=== PATIENT | female | born 1975 | race African-American/Black ===

== ENCOUNTER 2016-09-01 11:22 | Emergency (ER) | payer MEDICAID ==
[~2016-09-01] VITALS: Ht 162.6 cm; Wt 63.5 kg
[2016-09-01] MEDS ORDERED: LORazepam Inj 2mg/ml 1ml ONE (11:35)
[2016-09-01] MEDS ORDERED: LORazepam Inj 2mg/ml 1ml IM ONE (11:45)
[2016-09-01 12:59] VITALS: BP 124/85
--- NOTE | 2016-09-02 01:05 | Emergency Room Report ---
History of Present Illness General Chief Complaint: General Complaint Source: Patient Present Illness HPI Patient with severe emotional distress after loosing her son in our ICU. Will not state much except that she is distraught. No vomiting. No prior psychiatric history. SOB, some chest pain and headache. Allergies: Coded Allergies: No Known Allergies (Unverified , 09/01/16) Patient History Limited by: medical condition Past Medical History: see triage record Pertinent Family History: other - sickle cell anemia Social History: Reports: smoking Social History Narrative with family Last Menstrual Period: 2 weeks ago Nursing Documentation-[facility] Past Medical History: No Stated History Review of Systems All Other Systems: limited Physical Exam Vital Signs Date Time Temp Pulse Resp B/P Pulse Ox O2 Delivery O2 Flow Rate FiO2 09/01/16 11:27 97.9 112 20 138/73 96 Room Air Sp02 EP Interpretation: reviewed, normal General Appearance: moderate distress Head: normocephalic, atraumatic Eyes: bilateral eye PERRL, bilateral eye other ENT: moist mucus membranes Neck: full range of motion Respiratory: lungs clear Cardiovascular #1: tachycardia Cardiovascular #2: 2+ radial (L) Gastrointestinal: normal inspection Musculoskeletal: gait/station normal, normal range of motion Neurologic: alert, oriented x3, motor strength/tone normal Psychiatric: other - distraught, tearful Skin: normal inspection, normal color Medical Decision Making Diagnostic Impression: Primary Impression: Grief reaction ER Course Patient with emotional crisis. No evidence for other work up at this time. Ativan ordered. Patient calm and wants to go to be with family. Patient stable for outpatient observation and treatment. Last Vital Signs Date Time Temp Pulse Resp B/P Pulse Ox O2 Delivery O2 Flow Rate FiO2 09/01/16 12:59 97.9 92 20 124/85 99 Room Air Status: improved Disposition: HOME, SELF-CARE Condition: Improved Referrals: Howard Guardado Patient Instructions: Complicated Grieving Additional Instructions: There are groups who can help you. Socrates Sumner M.D. Sep 02, 2016 01:05
== END 2016-09-01 12:59 | disposition home or self-care (01) ==
LOC: EMR 12:01
DX: F43.20 Adjustment disorder, unspecified (principal); R06.02 Shortness of breath; F17.200 Nicotine dependence, unspecified, uncomplicated
CPT/HCPCS: 96372; 99283